=== PATIENT | female | born 1990 | race Caucasian/White ===

== ENCOUNTER 2016-10-28 10:56 | Emergency (ER) | payer OTHER ==
[2016-10-28 11:02] VITALS: BP 106/62; PULSE 62; TEMP 97.8; BMI 25.0
--- NOTE | 2016-10-28 12:34 | PDOC ---
History of Present Illness - General Chief Complaint: Ear Problem Stated Complaint: EAR PAIN Time Seen by Provider: 10/28/16 12:18 History Source: Patient Exam Limitations: No Limitations - History of Present Illness Initial Comments: 10/28/16 17:34 26 yr female with c/o right ear pain for 3 days getting worse. Past History - Past Medical History Allergies/Adverse Reactions: Allergies Allergy/AdvReac Type Severity Reaction Status Date / Time No Known Drug Allergies Allergy Verified 10/28/16 11:02 Home Medications: Ambulatory Orders Amoxicillin - [Amoxicillin 500mg Capsule -] 500 mg PO TID #21 capsule 10/28/16 Ofloxacin Otic [Floxin Otic -] 10 drop OT DAILY #1 bottle 10/28/16 Anemia: Yes Asthma: No Cancer: No Cardiac Disorders: No CVA: No COPD: No CHF: No Dementia: No Diabetes: No GI Disorders: No Disorders: No HTN: No Hypercholesterolemia: No Liver Disease: No Suicide Attempt (Hx): No Seizures: No Thyroid Disease: No - Surgical History Abdominal Surgery: No Appendectomy: No Cardiac Surgery: No Cholecystectomy: No Lung Surgery: No Neurologic Surgery: No Orthopedic Surgery: No - Reproductive History (#): 2 Para: 1 Cervical CA: No Dysfunctional Uterine Bleeding: No Ectopic : No Endometrial CA: No Polycystic Ovaries: No Tubal Ligation: No - Immunization History Td Vaccination: Yes Immunization Up to Date: Yes - Psycho/Social/Smoking Cessation Hx Anxiety: No Suicidal Ideation: No Smoking Status: No Smoking History: Never smoked Years of Tobacco Use: 0 Have you smoked in the past 12 months: No Number of Cigarettes Smoked Daily: 0 Cigars Per Day: 0 Information on smoking cessation initiated: No Hx Alcohol Use: No Drug/Substance Use Hx: No Substance Use Type: None Hx Substance Use Treatment: No Review of Systems - Review of Systems Able to Perform ROS?: Yes Is the patient limited Syriac proficient: No Constitutional: No: Symptoms Reported HEENTM: Yes: See HPI *Physical Exam - Vital Signs Last Vital Signs Temp Pulse Resp BP Pulse Ox 97.8 F 62 18 106/62 100 10/28/16 11:01 10/28/16 11:01 10/28/16 11:01 10/28/16 11:01 10/28/16 11:01 - Physical Exam General Appearance: Yes: Nourished, Appropriately Dressed HEENT: positive: EOMI, RONNY, Pharyngeal Erythema, TM Erythema (right ear with serous drainage, narrowing of canal ) Neck: positive: Supple. negative: Lymphadenopathy (R), Lymphadenopathy (L) Respiratory/Chest: positive: Lungs Clear, Normal Breath Sounds Cardiovascular: positive: Regular Rhythm, Regular Rate Musculoskeletal: positive: Normal Inspection Extremity: positive: Normal Capillary Refill, Normal Inspection, Normal Range of Motion Integumentary: positive: Normal Color, Dry, Warm Neurologic: positive: Fully Oriented, Alert, Normal Mood/Affect, Normal Response , Motor Strength 5/5 Medical Decision Making - Medical Decision Making 10/28/16 17:33 cc: ear pain with drainage no fever or chills, pain getting worse 3 days 10/28/16 17:34 10/28/16 17:35 10/28/16 17:35 *DC/Admit/Observation/Transfer Diagnosis at time of Disposition: Acute otitis media with effusion - Discharge Dispostion Disposition: HOME Condition at time of disposition: Stable - Prescriptions Prescriptions: Amoxicillin - [Amoxicillin 500mg Capsule -] 500 mg PO TID #21 capsule Ofloxacin Otic [Floxin Otic -] 10 drop OT DAILY #1 bottle - Referrals Referrals: Joselyn Sutton MD [Primary Care Provider] - - Patient Instructions Additional Instructions: take amoxicillin as directed for 7 days and the ear drops for 10 days take motrin as needed for pain follow with ENT if symptoms do not improve or worsen
== END 2016-10-28 12:43 | disposition home or self-care (01) ==
LOC: JERFT 10:56
DX: H65.191 Other acute nonsuppurative otitis media, right ear (principal)
CPT/HCPCS: 99281-25

== ENCOUNTER 2017-02-18 15:56 | Emergency (ER) | payer OTHER ==
[2017-02-18 16:00] VITALS: BMI 25.0
--- NOTE | 2017-02-18 16:34 | PDOC ---
History of Present Illness - General History Source: Patient Exam Limitations: No Limitations - History of Present Illness Initial Comments: 02/18/17 17:02 The patient is a 26-year-old female accompanied by sister, with a significant past medical history of anemia, who presents to the ED with nausea, vomiting, and lightheadedness today. Pt states that she has been experiencing multiple episodes of vomiting, last episode at 11AM this morning. Pt is unsure if she is . Pt is not on any contraceptives and last menstrual period was on 01/25. She also reports diffuse abdominal pain and intermittent headaches. The patient denies any fever, chills, or diarrhea. Denies any shortness of breath or chest pain. <Oliva Joyce - Last Filed: 02/18/17 17:01> <Brianna Roberts - Last Filed: 02/18/17 20:42> - General Chief Complaint: Lightheaded Stated Complaint: LIGHTHEADED Time Seen by Provider: 02/18/17 16:30 Past History <Oliva Joyce - Last Filed: 02/18/17 17:01> - Past Medical History Anemia: Yes Asthma: No Cancer: No Cardiac Disorders: No CVA: No COPD: No CHF: No Dementia: No Diabetes: No GI Disorders: No Disorders: No HTN: No Hypercholesterolemia: No Liver Disease: No Suicide Attempt (Hx): No Seizures: No Thyroid Disease: No - Surgical History Abdominal Surgery: No Appendectomy: No Cardiac Surgery: No Cholecystectomy: No Lung Surgery: No Neurologic Surgery: No Orthopedic Surgery: No - Reproductive History (#): 2 Para: 1 Cervical CA: No Dysfunctional Uterine Bleeding: No Ectopic : No Endometrial CA: No Polycystic Ovaries: No Tubal Ligation: No - Immunization History Td Vaccination: Yes Immunization Up to Date: Yes - Psycho/Social/Smoking Cessation Hx Anxiety: No Suicidal Ideation: No Smoking Status: No Smoking History: Never smoked Years of Tobacco Use: 0 Have you smoked in the past 12 months: No Number of Cigarettes Smoked Daily: 0 Cigars Per Day: 0 Information on smoking cessation initiated: No Hx Alcohol Use: No Drug/Substance Use Hx: No Substance Use Type: None Hx Substance Use Treatment: No <Brianna Roberts - Last Filed: 02/18/17 20:42> - Past Medical History Allergies/Adverse Reactions: Allergies Allergy/AdvReac Type Severity Reaction Status Date / Time No Known Drug Allergies Allergy Verified 02/18/17 15:57 Review of Systems - Review of Systems Able to Perform ROS?: Yes Comments:: 02/18/17 17:02 Absent: fever, chills, diaphoresis, generalized weakness, malaise, loss of appetite HEENT: Absent: rhinorrhea, nasal congestion, throat pain, throat swelling, difficulty swallowing, mouth swelling, ear pain, eye pain, visual Changes CARDIOVASCULAR: Present: lightheadedness Absent: chest pain, syncope, palpitations, irregular heart rate, peripheral edema RESPIRATORY: Absent: cough, shortness of breath, dyspnea with exertion, orthopnea, wheezing, stridor, hemoptysis GASTROINTESTINAL: Present: abdominal pain, nausea, vomiting Absent: abdominal distension, diarrhea, constipation, melena, hematochezia GENITOURINARY: Absent: dysuria, frequency, urgency, hesitancy, hematuria, flank pain, genital pain MUSCULOSKELETAL: Absent: myalgia, arthralgia, joint swelling SKIN: Absent: rash, itching, pallor HEMATOLOGIC/IMMUNOLOGIC: Absent: easy bleeding, easy bruising, lymphadenopathy, frequent infections ENDOCRINE: Absent: unexplained weight gain, unexplained weight loss, heat intolerance, cold intolerance NEUROLOGIC: Present: headache Absent:focal weakness or paresthesias, dizziness, unsteady gait, seizure, mental status changes, bladder or bowel incontinence PSYCHIATRIC: Absent: anxiety, depression, suicidal or homicidal ideation, hallucinations. <Oliva Joyce - Last Filed: 02/18/17 17:01> *Physical Exam - Vital Signs Last Vital Signs Temp Pulse Resp BP Pulse Ox 97.6 F 81 18 114/76 100 02/18/17 15:57 02/18/17 15:57 02/18/17 15:57 02/18/17 15:57 02/18/17 15:57 - Physical Exam Comments: 02/18/17 17:06 GENERAL: Well-appearing, well-nourished. No apparent distress. HEENT: Normocephalic, atraumatic. PERRL, EOM intact. CARDIOVASCULAR: Normal S1, S2. Regular rate and rhythm. PULMONARY: Clear to auscultation bilaterally. ABDOMEN: Soft, non-distended, non-tender. EXTREMITIES: Normal ROM in all four extremities. No gross deformities. SKIN: Warm, dry. No rash NEUROLOGICAL: No focal neurological deficits. <IsiahOliva - Last Filed: 02/18/17 17:01> - Vital Signs Last Vital Signs Temp Pulse Resp BP Pulse Ox 97.6 F 81 18 114/76 100 02/18/17 15:57 02/18/17 15:57 02/18/17 15:57 02/18/17 15:57 02/18/17 15:57 <Brianna Roberts - Last Filed: 02/18/17 20:42> ED Treatment Course - ADDITIONAL ORDERS Additional order review: Laboratory Results 02/18/17 16:40 Urine HCG, Qual Negative <Oliva Joyce - Last Filed: 02/18/17 17:01> - LABORATORY CBC & Chemistry Diagram: 02/18/17 17:22 02/18/17 17:22 <Brianna Roberts - Last Filed: 02/18/17 20:42> Medical Decision Making - Medical Decision Making 02/18/17 18:00 26 yo female has had nausea and vomiting for 1 day and thinks she maybe -abdomen exam is benign -no fever,no diarrhea,no cough LMP 01/19/17-5/01/0802/18/17 20:41 Beta-hCG less than 1 therefore the patient is not CBC and chemistries are essentially unremarkable IMP gastritis <Brianna Roberts - Last Filed: 02/18/17 20:42> *DC/Admit/Observation/Transfer - Attestations Scribe Attestion: 02/18/17 17:07 Documentation prepared by Oliva Joyce, acting as medical social consultant for Brianna Roberts MD. <Oliva Joyce - Last Filed: 02/18/17 17:01> <Brianna Roberts - Last Filed: 02/18/17 20:42> Diagnosis at time of Disposition: Nausea and vomiting Qualifiers: Vomiting type: unspecified Vomiting Intractability: non-intractable Qualified Code(s): R11.2 - Nausea with vomiting, unspecified - Discharge Dispostion Disposition: HOME Condition at time of disposition: Stable - Referrals Referrals: Joselyn Sutton MD [Primary Care Provider] - - Patient Instructions Printed Discharge Instructions: DI for Vomiting -- Adult Additional Instructions: please advance your diet as tolerated return for worsening symptoms
[2017-02-18 17:10] LABS: URINE APPEARANCE CLOUDY; URINE BILIRUBIN NEGATIVE (NEGATIVE); URINE BLOOD NEGATIVE (NEGATIVE); URINE COLOR YELLOW; URINE GLUCOSE (UA) NEGATIVE (NEGATIVE); URINE KETONE NEGATIVE (NEGATIVE); URINE NITRITE NEGATIVE (NEGATIVE); URINE PROTEIN NEGATIVE (NEGATIVE); URINE UROBILINOGEN NEGATIVE E.U./dl (0.2-1.0)
[2017-02-18 17:29] LABS: URINE LEUK ESTERASE 2+ (NEGATIVE)
[2017-02-18 17:30] LABS: URINE HYALINE CAST 5 /lpf; URINE MUCUS MANY; URINE RBC 6 /hpf (0-3); URINE WBC 9 /hpf (3-5)
[2017-02-18 18:25] LABS: BASOPHIL 1.1 % (0-2.0); EOSINOPHIL 0.9 % (0-4.5); MCH 30.4 pg (25.7-33.7); MEAN CELL VOLUME 92.2 fl (80-96); MEAN PLT VOLUME 9.7 fl (7.5-11.1); NEUTROPHILS 58.3 % (42.8-82.8); PLATELET COUNT 230 K/MM3 (134-434); RDW 13.2 % (11.6-15.6); WHITE BLOOD COUNT 5.9 K/mm3 (4.0-10.0)
[2017-02-18 19:00] LABS: ALBUMIN 3.7 g/dl (3.4-5.0); ANION GAP 11 (8-16); CALCIUM 8.6 mg/dL (8.5-10.1); CO2 26 mmol/L (21-32); CREATININE 0.6 mg/dL (0.55-1.02); GLUCOSE,RANDOM 65 mg/dL (74-106); SGOT/AST 12 U/L (15-37); SGPT/ALT 11 U/L (12-78)
[2017-02-18 19:02] LABS: ALK PHOS 63 U/L (45-117); BILIRUBIN,TOTAL 1.3 mg/dL (0.2-1.0); TOT PROT 6.6 g/dl (6.4-8.2)
[2017-02-18 19:31] VITALS: BP 116/78; PULSE 78; TEMP 97.8
== END 2017-02-18 19:31 | disposition home or self-care (01) ==
LOC: JER 15:56
DX: R12 Heartburn (principal)
CPT/HCPCS: 36415; 80053; 81003; 81015; 84702; 84703; 85025; 99282-25

== ENCOUNTER → 2017-05-04 | Emergency (ER) | payer OTHER ==
[~2017-05-04] MED LIST: IBUPROFEN 600 MG TABLET (FP) PO ONE
[2017-05-04 21:14] VITALS: TEMP 98.1; BMI 25.0
--- NOTE | 2017-05-04 21:35 | PDOC ---
History of Present Illness - General History Source: Patient Exam Limitations: No Limitations - History of Present Illness Initial Comments: 05/04/17 22:08 The patient is a 26 year old female with no significant PMH who presents to the emergency department with midsternal chest pain beginning approximately 10 days ago. The patient notes that her pain was intermittent when it began, but has since become continuous starting about 2 days ago. She reports that the chest pain is aggravated by coughs, laughs, and deep breaths. She reports that the chest pain is alleviated by rest. The patient denies taking any medications to alleviate her chest pain. 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 The patient denies headaches and dizziness. Denies palpitations. Denies fever, chills, nausea, vomit, diarrhea and constipation. Denies dysuria, frequency, urgency and hematuria. LMP: 04/15/2017 Allergies: NKDA Past surgical history: Tonsillectomy (4 years ago) Social history: No reported cigarette, alcohol, or drug use. PCP: Dr. Sutton <Kang Deng - Last Filed: 05/04/17 22:08> <Almaz Evans - Last Filed: 05/05/17 20:10> - General Chief Complaint: Chest Pain Stated Complaint: CHEST PAINS Time Seen by Provider: 05/04/17 21:35 Past History <Kang Deng - Last Filed: 05/04/17 22:08> - Past Medical History Anemia: Yes Asthma: No Cancer: No Cardiac Disorders: No CVA: No COPD: No CHF: No Dementia: No Diabetes: No GI Disorders: No Disorders: No HTN: No Hypercholesterolemia: No Liver Disease: No Suicide Attempt (Hx): No Seizures: No Thyroid Disease: No - Surgical History Abdominal Surgery: No Appendectomy: No Cardiac Surgery: No Cholecystectomy: No Lung Surgery: No Neurologic Surgery: No Orthopedic Surgery: No - Reproductive History (#): 2 Para: 1 Cervical CA: No Dysfunctional Uterine Bleeding: No Ectopic : No Endometrial CA: No Polycystic Ovaries: No Tubal Ligation: No - Immunization History Td Vaccination: Yes Immunization Up to Date: Yes - Psycho/Social/Smoking Cessation Hx Anxiety: No Suicidal Ideation: No Smoking Status: No Smoking History: Never smoked Years of Tobacco Use: 0 Have you smoked in the past 12 months: No Number of Cigarettes Smoked Daily: 0 Cigars Per Day: 0 Information on smoking cessation initiated: No Hx Alcohol Use: No Drug/Substance Use Hx: No Substance Use Type: None Hx Substance Use Treatment: No <Almaz Evans - Last Filed: 05/05/17 20:10> - Past Medical History Allergies/Adverse Reactions: Allergies Allergy/AdvReac Type Severity Reaction Status Date / Time No Known Drug Allergies Allergy Verified 02/18/17 15:57 Home Medications: Ambulatory Orders NK [No Known Home Medication] 05/04/17 Review of Systems - Review of Systems Able to Perform ROS?: Yes Comments:: 05/04/17 22:09 CONSTITUTIONAL: Absent: Fevers, chills, diaphoresis, generalized weakness, malaise, loss of appetite HEENT: Absent: rhinorrhea, nasal congestion, throat pain, throat swelling, difficulty swallowing, mouth swelling, ear pain, eye pain, visual Changes CARDIOVASCULAR: (+) Midsternal chest pain Absent: syncope, palpitations, irregular heart rate, lightheadedness, peripheral edema RESPIRATORY: Absent: cough, shortness of breath, dyspnea with exertion, orthopnea, wheezing, stridor, hemoptysis GASTROINTESTINAL: Absent: abdominal pain, abdominal distension, nausea, vomiting, diarrhea, constipation, melena, hematochezia GENITOURINARY: Absent: dysuria, frequency, urgency, hesitancy, hematuria, flank pain, genital pain MUSCULOSKELETAL: Absent: myalgia, arthralgia, joint swelling SKIN: Absent: rash, itching, pallor HEMATOLOGIC/IMMUNOLOGIC: Absent: easy bleeding, easy bruising, lymphadenopathy, frequent infections ENDOCRINE: Absent: unexplained weight gain, unexplained weight loss, heat intolerance, cold intolerance NEUROLOGIC: Absent: headache, focal weakness or paresthesias, dizziness, unsteady gait, seizure, mental status changes, bladder or bowel incontinence PSYCHIATRIC: Absent: anxiety, depression, suicidal or homicidal ideation, hallucinations. <Kang Deng - Last Filed: 05/04/17 22:08> *Physical Exam - Vital Signs Last Vital Signs Temp Pulse Resp BP Pulse Ox 98.1 F 56 L 20 122/62 100 05/04/17 21:11 05/04/17 21:11 05/04/17 21:11 05/04/17 21:11 05/04/17 21:11 - Physical Exam Comments: 05/04/17 22:09 GENERAL: Well developed, well nourished. Awake and alert. No acute distress. HEENT: Normocephalic, atraumatic. PERRLA, EOMI. No conjunctival pallor. Sclera are non- icteric. Moist mucous membranes. Oropharynx is clear. NECK: Supple. Full ROM. No JVD. Carotid pulses 2+ and symmetric, without bruits. No thyromegaly. No lymphadenopathy. CARDIOVASCULAR: Regular rate and rhythm. No murmurs, rubs, or gallops. Distal pulses are 2+ and symmetric. PULMONARY: No evidence of respiratory distress. Lungs clear to auscultation bilaterally. No wheezing, rales or rhonchi. ABDOMINAL: Soft. Non-tender. Non-distended. No rebound or guarding. No organomegaly. Normoactive bowel sounds. MUSCULOSKELETAL: (+) Anterior muscular chest wall tenderness with movement Normal range of motion at all joints. No bony deformities or tenderness. No CVA tenderness. EXTREMITIES: No cyanosis. No clubbing. No edema. No calf tenderness. SKIN: Warm and dry. Normal capillary refill. No rashes. No jaundice. NEUROLOGICAL: Alert, awake, appropriate. Cranial nerves 2-12 intact. No deficits to light touch and temperature in face, upper extremities and lower extremities. No motor deficits in the in face, upper extremities and lower extremities. Normoreflexic in the upper and lower extremities. Normal speech. Toes are downgoing bilaterally. Gait is normal without ataxia. PSYCHIATRIC: Cooperative. Good eye contact. Appropriate mood and affect. <Kang Deng - Last Filed: 05/04/17 22:08> - Vital Signs Last Vital Signs Temp Pulse Resp BP Pulse Ox 98.1 F 56 L 20 122/62 100 05/04/17 21:11 05/04/17 21:11 05/04/17 21:11 05/04/17 21:11 05/04/17 21:11 <Almaz Evans - Last Filed: 05/05/17 20:10> Medical Decision Making - Medical Decision Making 05/05/17 20:06 Pt comes with chest wall pain. Pain when she moves or laughs. 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 Pt has no back pain. No SOB and no fever and no chills. She has normal vitals. She has no other complaints. SHe will be treated with analgesics for chest wall pain. <Almaz Evans - Last Filed: 05/05/17 20:10> *DC/Admit/Observation/Transfer - Attestations Scribe Attestion: 05/04/17 22:10 Documentation prepared by Kang Deng, acting as medical physics professor for Almaz Evans MD. <Kang Deng - Last Filed: 05/04/17 22:08> - Discharge Dispostion Admit: No <Almaz Evans - Last Filed: 05/05/17 20:10> Diagnosis at time of Disposition: Chest wall pain - Discharge Dispostion Disposition: HOME Condition at time of disposition: Stable - Referrals Referrals: Joselyn Stuton MD [Primary Care Provider] - - Patient Instructions Printed Discharge Instructions: DI for Musculoskeletal Pain, DI for Atypical Chest Pain Additional Instructions: Follow up with your physician Return to the ER for severe/persistent/worsening symptoms
[2017-05-04 22:51] VITALS: BP 110/71; PULSE 63
--- NOTE | 2017-05-05 13:26 | EKG ---
Test Reason : Blood Pressure : / mmHG Vent. Rate : 057 BPM Atrial Rate : 057 BPM P-R Int : 158 ms QRS Dur : 082 ms QT Int : 414 ms P-R-T Axes : 040 057 049 degrees QTc Int : 402 ms SINUS BRADYCARDIA OTHERWISE NORMAL ECG NO PREVIOUS ECGS AVAILABLE Confirmed by MAXINE PERRY, LYNN ([id number]) on 05/05/2017 1:26:18 PM Referred By: Confirmed By:LYNN GOODMAN MD
== END | disposition home or self-care (01) ==
LOC: JER 21:09
DX: R07.89 Other chest pain (principal); D64.9 Anemia, unspecified
CPT/HCPCS: 93005; 93010; 99282-25

== ENCOUNTER 2017-11-21 17:21 | Emergency (ER) | payer OTHER ==
[2017-11-21 17:25] VITALS: BP 122/69; PULSE 70; TEMP 97.7; BMI 25.7
--- NOTE | 2017-11-21 17:29 | PDOC ---
Rapid Medical Evaluation Time Seen by Provider: 11/21/17 17:22 Medical Evaluation: Allergies Allergy/AdvReac Type Severity Reaction Status Date / Time No Known Drug Allergies Allergy Verified 11/21/17 17:22 11/21/17 17:22 I have performed a brief in-person evaluation of this patient. The patient presents with a chief complaint of: sore throat and chills since yesterday, difficulty swallowing, minimal cough/runny nose Pertinent physical exam findings: erythematous oropharynx, s/p tonsillectomy I have ordered the following: strep The patient will proceed to the ED for further evaluation. Discharge Disposition - Diagnosis Sore throat - Referrals - Patient Instructions - Post Discharge Activity
--- NOTE | 2017-11-21 18:43 | PDOC ---
History of Present Illness - General Chief Complaint: Cold Symptoms Stated Complaint: SORE THROAT Time Seen by Provider: 11/21/17 17:22 History Source: Patient Exam Limitations: No Limitations - History of Present Illness Initial Comments: 11/21/17 18:45 Patient came for evaluation of sore throat pain on and off for the past few days. States has a terrible cold, and copious posterior sinus drainage. Has used old-fashioned remedies with minimal result. Denies fevers, denies swollen tonsils, denies any phlegm production or any purulent drainage from nose. Is outside sales professional Timing/Duration: unsure Severity: mild Modifying Factors: improves with: cold therapy Associated Symptoms: reports: denies symptoms Past History - Travel Traveled outside of the country in the last 30 days: No Close contact w/someone who was outside of country & ill: No - Past Medical History Allergies/Adverse Reactions: Allergies Allergy/AdvReac Type Severity Reaction Status Date / Time No Known Drug Allergies Allergy Verified 11/21/17 17:22 Home Medications: Ambulatory Orders NK [No Known Home Medication] 05/04/17 Anemia: Yes Asthma: No Cancer: No Cardiac Disorders: No CVA: No COPD: No CHF: No Dementia: No Diabetes: No GI Disorders: No Disorders: No HTN: No Hypercholesterolemia: No Liver Disease: No Seizures: No Thyroid Disease: No - Surgical History Abdominal Surgery: No Appendectomy: No Cardiac Surgery: No Cholecystectomy: No Lung Surgery: No Neurologic Surgery: No Orthopedic Surgery: No - Reproductive History (#): 2 Para: 1 Cervical CA: No Dysfunctional Uterine Bleeding: No Ectopic : No Endometrial CA: No Polycystic Ovaries: No Tubal Ligation: No - Immunization History Td Vaccination: Yes Immunization Up to Date: Yes - Suicide/Smoking/Psychosocial Hx Smoking Status: No Smoking History: Never smoked Years of Tobacco Use: 0 Have you smoked in the past 12 months: No Number of Cigarettes Smoked Daily: 0 Cigars Per Day: 0 Hx Alcohol Use: No Drug/Substance Use Hx: No Substance Use Type: None Hx Substance Use Treatment: No Review of Systems - Review of Systems Able to Perform ROS?: Yes Is the patient limited Wolof proficient: Yes Constitutional: Yes: Symptoms Reported, See HPI HEENTM: Yes: See HPI Respiratory: Yes: Symptoms reported, See HPI, Cough. No: Wheezing Cardiac (ROS): No: Symptoms Reported Musculoskeletal: Yes: See HPI. No: Symptoms Reported Integumentary: Yes: Symptoms Reported All Other Systems: Reviewed and Negative *Physical Exam - Vital Signs Last Vital Signs Temp Pulse Resp BP Pulse Ox 97.7 F 70 19 122/69 99 11/21/17 17:22 11/21/17 17:22 11/21/17 17:22 11/21/17 17:22 11/21/17 17:22 - Physical Exam General Appearance: Yes: Nourished, Appropriately Dressed, Apparent Distress, Mild Distress HEENT: positive: RONNY, Normal ENT Inspection, TMs Normal (congested), Pharynx Normal, Nasal Congestion, Rhinorrhea Neck: positive: Supple, Lymphadenopathy (R), Lymphadenopathy (L). negative: Tender Respiratory/Chest: positive: Lungs Clear, Normal Breath Sounds Gastrointestinal/Abdominal: positive: Soft. negative: Tender Musculoskeletal: positive: Normal Inspection Extremity: positive: Normal Capillary Refill, Normal Inspection Integumentary: positive: Dry, Warm, Pale Neurologic: positive: bar welder II-XII NML intact, Fully Oriented, Alert, Normal Mood/ Affect, Normal Response, Motor Strength 5/5 ED Treatment Course - ADDITIONAL ORDERS Additional order review: 11/21/17 17:29 Group A Strep Rapid Antigen - Final Throat Medical Decision Making - Medical Decision Making 11/21/17 18:47 Strep test negative, UCG negative. There is no evidence of any bacterial infection, we'll treat conservatively and have follow-up with PMD as needed *DC/Admit/Observation/Transfer Diagnosis at time of Disposition: Sore throat - Discharge Dispostion Disposition: HOME Condition at time of disposition: Stable Admit: No - Referrals Referrals: Joselyn Sutton MD [Primary Care Provider] - - Patient Instructions Printed Discharge Instructions: DI for Common Cold Additional Instructions: Rest, drink lots of fluids: Teas, water, soups, Pedialyte Saltwater gargles Steamy showers/seem to face break up mucus Avoid contact with others until fevers and cough resolved Lots of handwashing and good hygiene Continue [id number] medications for symptomatic relief Tylenol or Motrin for fever and pain Followup with private physician in one to 2 days as needed Return to emergency department for worsened symptoms, fevers, dehydration - Post Discharge Activity Forms/Work/School Notes: Back to Work
== END 2017-11-21 18:49 | disposition home or self-care (01) ==
LOC: JERFT 17:21
DX: J02.9 Acute pharyngitis, unspecified (principal)
CPT/HCPCS: 84703; 87070; 87430; 99281-25

== ENCOUNTER 2019-10-12 17:42 | Emergency (ER) | payer OTHER ==
[2019-10-12 17:51] VITALS: TEMP 97.8; BMI 23.6
[2019-10-12] MEDS ORDERED: FAMOTIDINE 20 MG/50 ML IVPB 20 MG/50 ML MG IVPB ONE ×2 (18:20→18:33)
[2019-10-12] MEDS ORDERED: ONDANSETRON 4 MG/2 ML VIAL IVPUSH ONE (18:20)
[2019-10-12] MEDS ORDERED: SODIUM CHLORIDE 1,000 ML IV STA (18:20)
[2019-10-12] MEDS ORDERED: MAG HYDROX/AL HYDROX/SIMETH 30 ML UNIT-DOSE CUP PO ONE (18:24)
[2019-10-12] MEDS ORDERED: ONDANSETRON 4 MG/2 ML VIAL ONE (18:33)
[2019-10-12] MEDS ORDERED: MAG HYDROX/AL HYDROX/SIMETH 30 ML UNIT-DOSE CUP ONE (18:33)
--- NOTE | 2019-10-12 19:03 | PDOC ---
History of Present Illness - General Chief Complaint: Nausea/Vomiting Stated Complaint: ABD PAIN & VOMITING History Source: Patient Exam Limitations: No Limitations - History of Present Illness Initial Comments: 10/12/19 19:04 29 yo female no sig pmh presents to the ED for NB/NB vomiting and abdominal pain. LMP 09/21/2019, regular and on time. The pain is diffuse in the abdomen but states epigastric region is the worst location, described as sharp and stabbing without radiation, denies changes in bowl or urinary habits, denies Past History - Past Medical History Allergies/Adverse Reactions: Allergies Allergy/AdvReac Type Severity Reaction Status Date / Time No Known Drug Allergies Allergy Verified 10/12/19 17:51 Home Medications: Ambulatory Orders Cephalexin [Keflex] 500 mg PO BID #14 capsule 10/12/19 Ondansetron [Zofran *Odt*] 4 mg SL BID #14 od.tablet 10/12/19 Anemia: Yes Asthma: No Cancer: No Cardiac Disorders: No CVA: No COPD: No CHF: No Dementia: No Diabetes: No GI Disorders: No Disorders: No HTN: No Hypercholesterolemia: No Liver Disease: No Seizures: No Thyroid Disease: No - Surgical History Abdominal Surgery: No Appendectomy: No Cardiac Surgery: No Cholecystectomy: No Lung Surgery: No Neurologic Surgery: No Orthopedic Surgery: No - Reproductive History (#): 2 Para: 1 Cervical CA: No Dysfunctional Uterine Bleeding: No Ectopic : No Endometrial CA: No Polycystic Ovaries: No Tubal Ligation: No - Immunization History Td Vaccination: Yes Immunization Up to Date: Yes - Psycho Social/Smoking Cessation Hx Smoking Status: No Smoking History: Never smoked Years of Tobacco Use: 0 Have you smoked in the past 12 months: No Number of Cigarettes Smoked Daily: 0 Cigars Per Day: 0 Hx Alcohol Use: No Drug/Substance Use Hx: No Substance Use Type: None Hx Substance Use Treatment: No Review of Systems - Review of Systems Constitutional: Yes: See HPI HEENTM: Yes: See HPI Respiratory: Yes: See HPI Cardiac (ROS): Yes: See HPI ABD/GI: Yes: See HPI : Yes: See HPI Musculoskeletal: Yes: See HPI Integumentary: Yes: See HPI Neurological: Yes: See HPI *Physical Exam - Vital Signs Last Vital Signs Temp Pulse Resp BP Pulse Ox 97.8 F 74 18 116/61 99 10/12/19 17:48 10/12/19 17:48 10/12/19 17:48 10/12/19 17:48 10/12/19 17:48 - Physical Exam General Appearance: Yes: Nourished, Appropriately Dressed. No: Apparent Distress HEENT: positive: EOMI Neck: positive: Supple. negative: Rigid Respiratory/Chest: positive: Lungs Clear, Normal Breath Sounds. negative: Accessory Muscle Use, Rapid RR, Crackles, Rales, Rhonchi, Stridor, Wheezing Cardiovascular: positive: Regular Rhythm, Regular Rate, S1, S2. negative: Edema , JVD, Murmur Vascular Pulses: Dorsalis-Pedis (R): 4+, Doralis-Pedis (L): 4+ Gastrointestinal/Abdominal: positive: Flat, Soft, Tenderness. negative: Pulsatile Mass, Distended, Guarding, Rebound Musculoskeletal: negative: CVA Tenderness Extremity: positive: Normal Capillary Refill, Normal Inspection, Normal Range of Motion Integumentary: positive: Normal Color, Dry, Warm Neurologic: positive: Fully Oriented, Alert, Normal Mood/Affect ED Treatment Course - LABORATORY CBC & Chemistry Diagram: 10/12/19 18:37 10/12/19 18:37 - Medications Given in the ED: ED Medications Discontinued Medications Generic Name Dose Route Start Last Admin Trade Name Ezequielq PRN Reason Stop Dose Admin Al Hydroxide/Mg Hydroxide 30 ml 10/12/19 18:24 10/12/19 18:51 Mylanta Oral Suspension - PO 10/12/19 18:25 30 ml ONCE ONE Administration Famotidine/Sodium Chloride 20 mg in 50 mls @ 100 mls/hr 10/12/19 18:20 18:51 Pepcid 20 Mg Premixed Ivpb - IVPB 10/12/19 18:49 100 mls/hr ONCE ONE Administration Ondansetron HCl 4 mg 10/12/19 18:20 10/12/19 18:51 Zofran Injection IVPUSH 10/12/19 18:21 4 mg ONCE ONE Administration Medical Decision Making - Medical Decision Making 29 yo female no sig pmh presents to the ED for NB/NB vomiting and abdominal pain. LMP 09/21/2019, regular and on time. The pain is diffuse in the abdomen but states epigastric region is the worst location, described as sharp and stabbing without radiation, denies changes in bowl or urinary habits, denies vitals WNL RUQ US neg for acute cholecystitis however sludge is noted labs WNL including LFTs and WBC UA positive for UTI, will DC with antibiotics pt safe for DC home with pcp f/u Discharge - Discharge Information Problems reviewed: Yes Clinical Impression/Diagnosis: Biliary colic Condition: Stable Disposition: HOME - Admission No - Additional Discharge Information Prescriptions: Cephalexin [Keflex] 500 mg PO BID #14 capsule Ondansetron [Zofran *Odt*] 4 mg SL BID #14 od.tablet - Follow up/Referral Referrals: Joselyn Sutton MD [Primary Care Provider] - Molina Deal MD [Staff Physician] - - Patient Discharge Instructions Patient Printed Discharge Instructions: DI for Urinary Tract Infection (UTI), DI for Nausea -- Adult, DI for Vomiting -- Adult, DI for Biliary Colic Additional Instructions: Please see your Primary Doctor and make an appointment to see the general surgeon referred to you. Take the medication Keflex for your UTI and over the counter pain medication such as Motrin and Tylenol as needed and directed on the packaging. Return to the ER for new or concerning symptoms including but not limited to: inability to eat or drink, severe pain, fever. Thank you - Post Discharge Activity
[2019-10-12 19:07] LABS: BASO % 0.7 % (0-2.0); EOS % 0.1 % (0-4.5); HEMATOCRIT 40.2 % (32.4-45.2); HEMOGLOBIN 13.6 GM/dL (10.7-15.3); LYMPH % 20.1 % (8-40); MCH 31.3 pg (25.7-33.7); MEAN CELL VOLUME 92.2 fl (80-96); MEAN PLT VOLUME 8.9 fl (7.5-11.1); MONO % 11.1 % (3.8-10.2); PLATELET COUNT 245 K/MM3 (134-434); RBC 4.36 M/mm3 (3.60-5.2); RDW 13.5 % (11.6-15.6); WHITE BLOOD COUNT 5.6 K/mm3 (4.0-10.0)
[2019-10-12 19:21] LABS: EPI CELLS 9.1 /HPF (0-5/HPF); HYALINE CASTS 25 /lpf (0-8); URINE APPEARANCE CLOUDY; URINE BACTERIA 229.2 /hpf (NEGATIVE); URINE BILIRUBIN NEGATIVE (NEGATIVE); URINE COLOR YELLOW; URINE GLUCOSE (UA) NEGATIVE (NEGATIVE); URINE KETONE 3+ (NEGATIVE); URINE LEUK ESTERASE NEGATIVE (NEGATIVE); URINE NITRITE NEGATIVE (NEGATIVE); URINE PROTEIN 1+ (NEGATIVE); URINE RBC 3 /hpf (0-4); URINE WBC 6 /hpf (0-5)
[2019-10-12 19:52] LABS: ALBUMIN 4.5 g/dl (3.4-5.0); BILIRUBIN,TOTAL 1.5 mg/dL (0.2-1); BLOOD UREA NITROGEN 11.9 mg/dL (7-18); CALCIUM 9.8 mg/dL (8.5-10.1); CREATININE 0.7 mg/dL (0.55-1.3); POTASSIUM 3.8 mmol/L (3.5-5.1); TOT PROT 7.6 g/dl (6.4-8.2)
--- NOTE | 2019-10-12 20:06 | PDOC ---
Attending Attestation - Resident Resident Name: Tin Schwarz - ED Attending Attestation I have performed the following: I have examined & evaluated the patient, The case was reviewed & discussed with the resident, I agree w/resident's findings & plan - HPI HPI: 10/12/19 20:56 Pt states for the last 2 days she has been vomiting and she has abdominal epigastric pain. She has no fever and no chills. She has no jaundice. She appears well. - Physicial Exam PE: 10/12/19 21:21 I agree with resident exam. Pt is afebrile and she appears well. heart and lungs clear No flank pain minimal abdominal pain - Medical Decision Making 10/12/19 20:50 Patient Name: BREANN TRAORE THIS IS A PRELIMINARY REPORT FROM [facility] DATE OF SERVICE: 2019-10-12 20:12:32 IMAGES: 54 EXAM: US ABDOMEN LIMITED HISTORY: Right upper quadrant pain. TECHNIQUE: Sonographic imaging was performed utilizing transabdominal approach. Additional Doppler flow of the liver were submitted for dictation. COMPARISON: None available. FINDINGS: Liver: Normal. The liver measures 14.7 cm. Normal directional flow seen in the portal veins. Bile Ducts: Intrahepatic and extrahepatic bile ducts are not dilated. The common bile duct measures 0.3 cm. Gallbladder: Cholelithiasis without evidence of gallbladder wall thickening or pericholecystic fluid. The sonographic Flores's sign was not reported by the a&p technician. Pancreas: The pancreatic head is unremarkable. Right Kidney: No pelvicaliceal dilatation. No stones. The right kidney measures 10.7 cm in length. Aorta and Inferior Vena Cava: Visualized portions appear normal. IMPRESSION: 1. Cholelithiasis without evidence of gallbladder wall thickening or pericholecystic fluid. The sonographic Flores's sign was not reported by the a&p technician. 10/12/19 20:59 Pt has normal WBC and chem; Tbili is minimally elevated; likely due to all the vomiting. She has no elevated LFTs. She has 3+ketones and she will be aggressively hydrated. 10/12/19 21:22 Pt is getting her 2nd L of NSS She will be given a 3rd 500ml bag and then she will be discharged.
[2019-10-12] MEDS ORDERED: CEFTRIAXONE 1 GM in DEXTROSE 5%-WATER - 100 ML IVPB ONE (20:50)
[2019-10-12] MEDS ORDERED: SODIUM CHLORIDE 0.9% 500 ML INFUS.BAG IV ONE (20:51)
[2019-10-12] MEDS ORDERED: CEFTRIAXONE 1 GM/50 ML BAG ONE (21:11)
[2019-10-12] MEDS ORDERED: ACETAMINOPHEN 325 MG TABLET (FP) PO ONE (23:04)
[2019-10-12] MEDS ORDERED: ACETAMINOPHEN 325 MG TABLET (FP) ONE (23:05)
[2019-10-13 01:15] VITALS: BP 124/65; PULSE 71
--- NOTE | 2019-10-14 11:30 | EKG ---
Test Reason : Blood Pressure : / mmHG Vent. Rate : 068 BPM Atrial Rate : 068 BPM P-R Int : 152 ms QRS Dur : 078 ms QT Int : 416 ms P-R-T Axes : 055 065 051 degrees QTc Int : 442 ms NORMAL SINUS RHYTHM WITH SINUS ARRHYTHMIA NORMAL ECG WHEN COMPARED WITH ECG OF 04-MAY-2017 21:19, NO SIGNIFICANT CHANGE WAS FOUND Confirmed by Tien Crenshaw MD ([id number]) on 10/14/2019 11:30:29 AM Referred By: Confirmed By:Tien Crenshaw MD
== END 2019-10-12 23:10 | disposition home or self-care (01) ==
LOC: JER 17:42
PROC: 3E033GC Introduction of Other Therapeutic Substance into Peripheral Vein, Percutaneous Approach (ICD-10-PCS; principal; 2019-10-12)
PROC: 3E03329 Introduction of Other Anti-infective into Peripheral Vein, Percutaneous Approach (ICD-10-PCS; 2019-10-12)
PROC: 3E033GC Introduction of Other Therapeutic Substance into Peripheral Vein, Percutaneous Approach (ICD-10-PCS; 2019-10-12)
DX: K80.50 Calculus of bile duct without cholangitis or cholecystitis without obstruction (principal)
CPT/HCPCS: 36415; 76705-TC; 80053; 81003; 83690; 84703; 85025; 87086; 93005; 93010; 99283-25; J7030

== ENCOUNTER 2022-01-21 16:47 | Emergency (ER) | payer OTHER ==
[2022-01-21 17:24] VITALS: BP 117/63; PULSE 60; TEMP 98.4; BMI 24.1
[2022-01-21] MEDS ORDERED: KETOROLAC TROMETHAMINE 15 MG/ML VIAL IM ONE (17:59)
[2022-01-21] MEDS ORDERED: KETOROLAC TROMETHAMINE 15 MG/ML VIAL ONE (18:00)
[2022-01-21] MEDS ORDERED: LIDOCAINE HCL 2% (50ML VIAL) SQ ONE (18:37)
[2022-01-21] MEDS ORDERED: LIDOCAINE HCL 2% (20ML MULTI-DOSE VIAL) ONE ×2 (18:38→18:44)
== END 2022-01-21 19:32 | disposition home or self-care (01) ==
LOC: JERFT 16:47
PROC: 0HQFXZZ Repair Right Hand Skin, External Approach (ICD-10-PCS; principal; 2022-01-21)
PROC: 3E0234Z Introduction of Serum, Toxoid and Vaccine into Muscle, Percutaneous Approach (ICD-10-PCS; 2022-01-21)
DX: S61.411A Laceration without foreign body of right hand, initial encounter (principal); W26.8XXA Contact with other sharp object(s), not elsewhere classified, initial encounter
CPT/HCPCS: 73130-TC-RT-FY; 99284-25

== ENCOUNTER 2022-01-24 14:40 | Emergency (ER) | payer OTHER ==
[2022-01-24 14:47] VITALS: BP 124/89; PULSE 81; TEMP 98.1; BMI 24.1
== END 2022-01-24 15:40 | disposition home or self-care (01) ==
LOC: JERFT 14:40
DX: S61.411A Laceration without foreign body of right hand, initial encounter (principal); Y99.9 Unspecified external cause status; Z48.00 Encounter for change or removal of nonsurgical wound dressing
CPT/HCPCS: 99283-25

== ENCOUNTER 2022-02-02 10:11 | Emergency (ER) | payer OTHER ==
[2022-02-02 10:38] VITALS: BP 106/45; PULSE 63; TEMP 97.9; BMI 25.0
== END 2022-02-02 11:09 | disposition home or self-care (01) ==
LOC: JERFT 10:11
DX: Z48.02 Encounter for removal of sutures (principal)
CPT/HCPCS: 99281-25

== ENCOUNTER 2022-09-09 10:16 | Emergency (ER) | payer OTHER ==
[2022-09-09 10:25] VITALS: BP 114/71; PULSE 86; RESP 20; TEMP 98.8; BMI 23.3
== END 2022-09-09 11:59 | disposition home or self-care (01) ==
LOC: JER 10:16
DX: J09.X2 Influenza due to identified novel influenza A virus with other respiratory manifestations (principal)
CPT/HCPCS: 0241U-QW; 99283-25

== ENCOUNTER 2023-03-22 14:19 | Emergency (ER) | payer OTHER ==
[2023-03-22 14:24] VITALS: BP 107/79; PULSE 71; RESP 18; TEMP 98.1; BMI 25.0
[2023-03-22] MEDS ORDERED: KETOROLAC TROMETHAMINE 30 MG/1 ML VIAL IM ONE (15:07)
[2023-03-22] MEDS ORDERED: KETOROLAC TROMETHAMINE 30 MG/1 ML VIAL ONE (15:26)
[2023-03-22] MEDS ORDERED: SUMATRIPTAN SUCCINATE 6 MG/0.5 ML VIAL SQ ONE (16:26)
[2023-03-22] MEDS ORDERED: SUMAtriptan SUCCINATE 25 MG TABLET PO ONE (16:28)
[2023-03-22] MEDS ORDERED: SUMATRIPTAN SUCCINATE 6 MG/0.5 ML VIAL ONE (16:37)
== END 2023-03-22 18:23 | disposition home or self-care (01) ==
LOC: JER 14:19
PROC: 3E0233Z Introduction of Anti-inflammatory into Muscle, Percutaneous Approach (ICD-10-PCS; principal; 2023-03-22)
DX: G43.909 Migraine, unspecified, not intractable, without status migrainosus (principal); R11.0 Nausea; H53.149 Visual discomfort, unspecified; R42 Dizziness and giddiness; H53.8 Other visual disturbances
CPT/HCPCS: 70450-TC; 70486-TC; 84703; 99284-25

== ENCOUNTER 2023-06-28 09:00 | Emergency (ER) | payer OTHER ==
[2023-06-28 09:10] VITALS: BP 109/68; PULSE 65; RESP 18; TEMP 98; BMI 23.3
[2023-06-28] MEDS ORDERED: IBUPROFEN 600 MG TABLET (FP) PO ONE ×2 (10:20→10:23)
== END 2023-06-28 10:51 | disposition home or self-care (01) ==
LOC: JERFT 09:00
DX: S60.212A Contusion of left wrist, initial encounter (principal); M25.532 Pain in left wrist; W22.8XXA Striking against or struck by other objects, initial encounter
CPT/HCPCS: 73110-TC-LT-FY; 73130-TC-LT-FY; 99283-25

== ENCOUNTER 2023-08-07 11:49 | Emergency (ER) | payer OTHER ==
[2023-08-07 11:54] VITALS: BP 114/81; PULSE 71; RESP 20; TEMP 98.1; BMI 25.9
== END 2023-08-07 14:15 | disposition home or self-care (01) ==
LOC: JERFT 11:49
DX: R05.9 Cough, unspecified (principal); R12 Heartburn; J40 Bronchitis, not specified as acute or chronic; Z20.822 Contact with and (suspected) exposure to COVID-19
CPT/HCPCS: 0241U-QW; 71046-TC-FY; 99284-25

== ENCOUNTER 2023-12-11 09:07 | Emergency (ER) | payer OTHER ==
[2023-12-11 09:13] VITALS: BP 114/58; PULSE 58; RESP 20; TEMP 98.5; BMI 24.1
[2023-12-11] MEDS ORDERED: LORATADINE 10 MG TABLET ONE (10:05)
[2023-12-11] MEDS: LORATADINE 10 MG TABLET PO ONE (10:06)
== END 2023-12-11 10:18 | disposition home or self-care (01) ==
LOC: JERFT 09:07
DX: R21 Rash and other nonspecific skin eruption (principal); L50.9 Urticaria, unspecified
CPT/HCPCS: 99283-25

== ENCOUNTER 2024-02-26 15:25 | Emergency (ER) | payer OTHER ==
[2024-02-26 15:35] VITALS: TEMP 98.3; BMI 25.7
[2024-02-26 16:19] LABS: BASO % 0.3 % (0-2.0); EOS % 1.3 % (0-4.5); HEMATOCRIT 37.5 % (32.4-45.2); HEMOGLOBIN 12.4 GM/dL (10.7-15.3); LYMPH % 46.2 % (8-40); MCH 30.8 pg (25.7-33.7); MCHC 33.1 g/dl (32.0-36.0); MEAN CELL VOLUME 93.3 fl (80-96); MEAN PLT VOLUME 8.3 fl (7.5-11.1); MONO % 8.6 % (3.8-10.2); NEUT % 43.6 % (42.8-82.8); PLATELET COUNT 264 10^3/uL (134-434); RBC 4.02 M/mm3 (3.60-5.2); RDW 13.2 % (11.6-15.6); WHITE BLOOD COUNT 4.3 K/mm3 (4.0-10.0)
[2024-02-26 16:36] LABS: ALBUMIN 3.8 g/dl (3.4-5.0); CALCIUM 8.9 mg/dL (8.5-10.1)
[2024-02-26 16:40] LABS: CREATININE 0.5 mg/dL (0.55-1.3)
[2024-02-26 16:41] LABS: TOT PROT 6.9 g/dl (6.4-8.2)
[2024-02-26] MEDS ORDERED: DICYCLOMINE HCL 10 MG CAPSULE ONE (16:59)
[2024-02-26] MEDS ORDERED: MAG HYDROX/AL HYDROX/SIMETH 30 ML UNIT-DOSE CUP ONE (16:59)
[2024-02-26] MEDS ORDERED: FAMOTIDINE 20 MG TABLET ONE (16:59)
[2024-02-26] MEDS ORDERED: SUCRALFATE 1 GM TABLET (FP) ONE (16:59)
[2024-02-26] MEDS: MAG HYDROX/AL HYDROX/SIMETH 30 ML UNIT-DOSE CUP PO ONE (17:06)
[2024-02-26] MEDS: DICYCLOMINE HCL 20 MG TABLET PO ONE (17:06)
[2024-02-26] MEDS: SUCRALFATE 1 GM TABLET (FP) PO ONE (17:06)
[2024-02-26] MEDS: FAMOTIDINE 20 MG TABLET PO ONE (17:07)
[2024-02-26 18:14] VITALS: BP 116/75; PULSE 51; RESP 16
== END 2024-02-26 18:15 | disposition home or self-care (01) ==
LOC: JER 15:25
DX: R10.13 Epigastric pain (principal); R10.11 Right upper quadrant pain
CPT/HCPCS: 36415; 76705-TC; 80053; 83690; 84703; 85025; 99284-25